=== PATIENT | male | born 1985 ===

== ENCOUNTER 2020-03-26 06:52 | Outpatient (NON) | payer BC, SELFPAY ==
[2020-03-26 23:09] LABS: SARS-CoV-2 RNA PCR Negative
== END 2020-03-26 06:53 ==
PROVIDERS: Visit Provider Physician Assistant
DX: Z20.828 Contact with and (suspected) exposure to other viral communicable diseases (principal); R09.89 Other specified symptoms and signs involving the circulatory and respiratory systems; R05 Cough
CPT/HCPCS: 87635; C9803; U0003